=== PATIENT | male | born 1940 | race Caucasian/White ===

== ENCOUNTER 2017-04-23 18:10 | Emergency (ER) | payer MEDICARE, OTHER ==
[2017-04-23 18:44] VITALS: BP 167/77
[2017-04-23] MEDS ORDERED: cefTRIAXone SODIUM 1 GM VIAL IM ONE (18:54)
[2017-04-23] MEDS ORDERED: Lidocaine 1% 5ml(IM or SUTURE)(PAIN CLINIC) IJ ONE (18:54)
[2017-04-23] MEDS ORDERED: cefTRIAXone SODIUM 1 GM VIAL ONE (18:55)
[2017-04-23] MEDS ORDERED: Lidocaine 1% 5ml(IM or SUTURE)(PAIN CLINIC) ONE (18:56)
--- NOTE | 2017-04-23 18:58 | ED Physician Documentation ---
Sore Throat/Dental Pain - HISTORIAN Historian: patient, spouse - HPI Stated Complaint: DENTAL Chief Complaint: Dental Pain Additional Information: dentist remove defective tooth cap sevdays ago on amoxicillin not helping-they called dentist he rec rocephin-will also give keflex in case dentist requests- they will [facility] -will call him in am. Onset: days ago (5) Context: Possible Infection Associated Symptoms: denies: fever, chills, runny nose, congestion Worsened By: heat, cold Further Comments: yes (pt and riding [facility]) - ROS CONST: no problems CVS/RESP: none GI/: denies: problems urinating, nausea MS/SKIN/LYMPH: denies: muscle aches NEURO/PSYCH: none - PAST HX Past History: none Allergies/Adverse Reactions: Allergies Allergy/AdvReac Type Severity Reaction Status Date / Time No Known Allergies Allergy Verified 04/23/17 18:35 Home Medications: Ambulatory Orders Medication Instructions Recorded HYDROcodone /APAP 5/325 [Leon 1 each PO Q6 PRN 04/23/17 5/325] Naproxen [Naprosyn] 500 mg PO BID PRN 04/23/17 Simvastatin [Zocor] 20 mg PO HS 04/23/17 Tamsulosin HCl [Flomax] 0.4 mg PO [id number] 04/23/17 amLODIPine BESYLATE [Norvasc] 10 mg PO 0900 04/23/17 - SOCIAL HX Smoking History: non-smoker Alcohol Use: none Drug Use: none - FAMILY HX Family History: No - VITAL SIGNS Vital Signs: Vital Signs Temp Pulse Resp BP Pulse Ox 98.5 F 76 18 167/77 98 04/23/17 18:10 04/23/17 18:10 04/23/17 18:10 04/23/17 18:10 04/23/17 18:10 - REVIEWED ASSESSMENTS Nursing Assessment Reviewed: Yes Vitals Reviewed: Yes ED Results Lab/Radiology - Orders Orders: ED Orders Category Date Time Status Lidocaine 1% 5ml(IM or SUTURE) [Xylocaine] Med 04/23/17 18:54 Once 50 mg IJ NOW ONE cefTRIAXone SODIUM [Rocephin] Med 04/23/17 18:54 Once 1 gm IM NOW ONE Dental Pain Physical Exam - EXAM General Appearance: mild distress Head/Neck: head nml inspection Eyes: eyes nml inspection Mouth/Throat: lips nml, gums nml Respiratory: no resp. distress, breath sounds nml. No: respiratory distress Abdomen: soft, non-tender Extremities: non-tender, nml ROM Skin: warm/dry, normal color. No: cyanosis, diaphoresis, jaundice Neuro/Psych: No: weakness, numbness, anxiety Discharge Clincal Impression: Pain, dental Referrals: Primary Doctor,No [Primary Care Provider] - 2 Days Condition: Good Disposition: 01 HOME, SELF-CARE Decision to Admit: NO Decision Time: 19:00
[2017-04-23] MEDS ORDERED: ONDANSETRON HCL 4 MG TAB.RAPDIS PO ONE (19:06)
[2017-04-23] MEDS ORDERED: LORazepam 2 MG/ML VIAL IM SCH (20:00)
== END 2017-04-23 18:58 | disposition home or self-care (01) ==
LOC: ED 18:10 → EDBD 18:10 → ED 18:58
DX: K08.89 Other specified disorders of teeth and supporting structures (principal)
CPT/HCPCS: J0696 ×2; 96372; 99283